=== PATIENT | female | born 1960 | race Caucasian/White ===

== ENCOUNTER 2022-06-09 17:25 | Emergency (ER) | payer MEDICARE, OTHER ==
[~2022-06-09] VITALS: Ht 157.5 cm; Wt 108.4 kg
[2022-06-09] MEDS ORDERED: ELIQUIS5 MG PO (17:48)
[2022-06-09] MEDS ORDERED: LIPITOR80 MG GT (17:49)
[2022-06-09] MEDS ORDERED: ADULT ASPIRIN R81 MG PO (17:49)
[2022-06-09] MEDS ORDERED: KEPPRA1000 MG PO (17:50)
[2022-06-09] MEDS ORDERED: NEURONTIN300 MG PO (17:50)
[2022-06-09] MEDS ORDERED: METFORMIN HCL1000 MG PO (17:51)
[2022-06-09] MEDS ORDERED: LISINOPRIL20 MG PO (17:51)
[2022-06-09] MEDS ORDERED: NITROSTAT0.4 MG SL (17:52)
[2022-06-09] MEDS ORDERED: NORVASC5 MG PO (17:52)
[2022-06-09] MEDS ORDERED: NOVOLOG100 UNIT/2 (17:53)
[2022-06-09] MEDS ORDERED: PAXIL40 MG PO (18:05)
[2022-06-09] MEDS ORDERED: PROVENTIL HFA6.7 GM INH (18:05)
[2022-06-09] MEDS ORDERED: OMEPRAZOLE20 MG PO (18:05)
[2022-06-09] MEDS ORDERED: TRESIBA100 UNIT/1 (18:06)
[2022-06-09] MEDS ORDERED: TORSEMIDE20 MG PO (18:06)
--- NOTE | 2022-06-09 22:23 | EKG ---
[facility] [address] [facility] [place] [id number] Signed Normal sinus rhythm Cannot rule out Anterior infarct , age undetermined Abnormal ECG No previous ECGs available Confirmed by Horacio Zarco MD () on 06/09/2022 10:23:09 PM Electronically Signed By: HORACIO ZARCO MD 06/09/222222 PATIENT NAME: RAMY PAK SINGH Electrocardiogram DATE OF : 58 PHYSICIAN: HORACIO ZARCO MD REPORT #: [id number] REPORT IS CONFIDENTIAL AND NOT TO BE RELEASED WITHOUT AUTHORIZATION
== END 2022-06-09 21:39 | disposition home or self-care (01) ==
LOC: ED 17:25
DX: R42 Dizziness and giddiness (principal); R79.89 Other specified abnormal findings of blood chemistry; I11.0 Hypertensive heart disease with heart failure; I50.9 Heart failure, unspecified; J44.9 Chronic obstructive pulmonary disease, unspecified; Z79.82 Long term (current) use of aspirin; Z79.84 Long term (current) use of oral hypoglycemic drugs; Z79.899 Other long term (current) drug therapy
CPT/HCPCS: 36415; 71045; 80053; 81001; 84484; 85025; 93005; 93010; 96374; 99284-25; J2405